=== PATIENT | female | born 1970 | race Caucasian/White ===

== ENCOUNTER 2016-11-26 14:59 | Emergency (ER) | payer SELFPAY ==
[2016-11-26] MEDS ORDERED: SODIUM CHLORIDE 0.9% 500 ML IV STA (16:06)
[2016-11-26] MEDS ORDERED: SODIUM CHLORIDE 0.9% 1,000 ML IV STA (16:06)
[2016-11-26] MEDS ORDERED: KETOROLAC 30 MG/ML 1 ML VIAL IVP STA (16:07)
[2016-11-26] MEDS ORDERED: IPRATROPIUM-ALBUTEROL 3 ML NEB INHALATION STA (16:07)
--- NOTE | 2016-11-26 16:14 | ED ---
Dizziness HPI - General Chief Complaint: Syncope Stated Complaint: lightheaded/dizziness/PATTY Time Seen by Provider: 11/26/16 15:58 Source: patient, RN notes reviewed Mode of arrival: wheelchair Limitations: no limitations - History of Present Illness Initial Comments: Patient is a 46-year-old female with chief complaint of shortness of breath and cough for the past week. She was diagnosed with bronchitis one week ago, and she is placed on azithromycin and Medrol Dosepak. Patient reports that she was continuing to feel ill so she went to [facility] last night. Patient reports that they did a flu swab which was negative and give her IV fluids. Patient reports they did not check any blood work. She states that today when she tried to walk the mailbox she had to stop for times to catch her breath. She states that she is a smoker but has decreased on her smoking due to her significant shortness of breath over the past week. She denies any other symptoms including abdominal pain, nausea or vomiting. She has taken her albuterol inhaler more frequently. Patient presents that she feels that she has had significant sinus congestion as well as a sore throat. Patient has a past medical history of fibromyalgia. - Related Data Home Medications Medication Instructions Recorded Confirmed Albuterol Inhaler [Ventolin Hfa 2 puff INHALATION RT-QID PRN 11/26/16 11/26/16 Inhaler] Previous Rx's Medication Instructions Recorded Levofloxacin [Levaquin] 750 mg PO DAILY #7 tab 11/26/16 predniSONE 50 mg PO DAILY #5 tab 11/26/16 Allergies Allergy/AdvReac Type Severity Reaction Status Date / Time No Known Allergies Allergy Verified 11/26/16 16:53 Review of Systems ROS Statement: Those systems with pertinent positive or pertinent negative responses have been documented in the HPI. ROS Other: All systems not noted in ROS Statement are negative. Past Medical History Additional Past Medical History / Comment(s): fibromyglia History of Any Multi-Drug Resistant Organisms: None Reported Past Psychological History: Depression Smoking Status: Current every day smoker Past Alcohol Use History: None Reported Past Drug Use History: None Reported General Exam - General Exam Comments Initial Comments: Patient is a ill-appearing 46-year-old female. . Limitations: no limitations General appearance: alert, in no apparent distress Head exam: Present: atraumatic, normocephalic, normal inspection Eye exam: Present: normal appearance, PERRL, EOMI. Absent: scleral icterus, conjunctival injection, periorbital swelling ENT exam: Present: normal exam, normal oropharynx, mucous membranes moist Neck exam: Present: normal inspection. Absent: tenderness, meningismus, lymphadenopathy Respiratory exam: Present: normal lung sounds bilaterally, wheezes (bilateral wheezing and rhonchi). Absent: respiratory distress, rales, rhonchi, stridor Cardiovascular Exam: Present: regular rate, normal rhythm, normal heart sounds. Absent: systolic murmur, diastolic murmur, rubs, gallop, clicks GI/Abdominal exam: Present: soft, normal bowel sounds. Absent: distended, tenderness, guarding, rebound, rigid Extremities exam: Present: normal inspection, full ROM, normal capillary refill. Absent: tenderness, pedal edema, joint swelling, calf tenderness Back exam: Present: normal inspection Neurological exam: Present: alert, oriented X3, CN II-XII intact Psychiatric exam: Present: normal affect, normal mood Skin exam: Present: warm, dry, intact, normal color. Absent: rash Course Vital Signs 11/26/16 11/26/16 11/26/16 15:05 16:27 16:39 Temperature 96.8 F L Pulse Rate 62 64 74 Respiratory 17 Rate Blood Pressure 176/97 O2 Sat by Pulse 100 Oximetry 11/26/16 11/26/16 16:41 18:24 Temperature 97.1 F L 97.3 F L Pulse Rate 82 63 Respiratory 22 18 Rate Blood Pressure 166/98 163/89 O2 Sat by Pulse 100 99 Oximetry EKG Findings - EKG Comments: EKG Findings:: EKG shows normal sinus rhythm with possible sinus arrhythmia. Intergrade 71 bpm. MT interval 190 ms. QS duration 82 Elza's hands. QT/QTC 38/ 421 ms. No evidence of ST elevation or T-wave inversion. Medical Decision Making - Medical Decision Making Patient is a 46-year-old female with chief complaint of shortness of breath and cough for the past week. She was diagnosed with bronchitis one week ago, and she is placed on azithromycin and Medrol Dosepak. Patient labs reviewed, no acute process noted besides urinary tractinfection. Patient CXR shows signs of bronchitis. Patient will be given rx for levaquin, initial dose in the [facility]. Patient given instructions on return parameters and following up with PCP. Agrees with treatment plan and will comply. - Lab Data Result diagrams: 11/26/16 16:39 11/26/16 16:39 Lab Results 11/26/16 11/26/16 11/26/16 Range/Units 16:39 16:39 16:39 WBC 10.5 (3.8-10.6) k/uL RBC 4.93 (3.80-5.40) m/uL Hgb 15.7 (11.4-16.0) gm/dL Hct 47.6 H (34.0-46.0) % MCV 96.6 (80.0-100.0) fL MCH 31.8 (25.0-35.0) pg MCHC 32.9 (31.0-37.0) g/dL RDW 13.0 (11.5-15.5) % Plt Count 282 (150-450) k/uL Neutrophils % 42 % Lymphocytes % 48 % Monocytes % 4 % Eosinophils % 2 % Basophils % 1 % Neutrophils # 4.4 (1.3-7.7) k/uL Lymphocytes # 5.0 H (1.0-4.8) k/uL Monocytes # 0.5 (0-1.0) k/uL Eosinophils # 0.2 (0-0.7) k/uL Basophils # 0.1 (0-0.2) k/uL Manual Slide Review Performed Toxic Granulation Present PT 11.3 (9.0-12.0) sec INR 1.1 (<1.1) APTT 24.8 (22.0-30.0) sec Sodium 142 (137-145) mmol/L Potassium 3.7 (3.5-5.1) mmol/L Chloride 105 (98-107) mmol/L Carbon Dioxide 26 (22-30) mmol/L Anion Gap 11 mmol/L BUN 13 (7-17) mg/dL Creatinine 0.72 (0.52-1.04) mg/dL Est GFR (MDRD) Af Amer >60 (>60 ml/min/1.73 sqM) Est GFR (MDRD) Non-Af >60 (>60 ml/min/1.73 sqM) Glucose 87 (74-99) mg/dL Calcium 9.3 (8.4-10.2) mg/dL Magnesium 1.8 (1.6-2.3) mg/dL Total Bilirubin 0.6 (0.2-1.3) mg/dL AST 15 (14-36) U/L ALT 45 (9-52) U/L Alkaline Phosphatase 83 (38-126) U/L Troponin I (0.000-0.034) ng/mL Total Protein 7.0 (6.3-8.2) g/dL Albumin 4.1 (3.5-5.0) g/dL Urine Color Urine Appearance (Clear) Urine pH (5.0-8.0) Ur Specific [place] (1.001-1.035) Urine Protein (Negative) Urine Glucose (UA) (Negative) Urine Ketones (Negative) Urine Blood (Negative) Urine Nitrate (Negative) Urine Bilirubin (Negative) Urine Urobilinogen (<2.0) mg/dL Ur Leukocyte Esterase (Negative) Urine RBC (0-5) /hpf Urine WBC (0-5) /hpf Ur Squamous Epith Cells (0-4) /hpf Urine Bacteria (None) /hpf Urine Mucus (None) /hpf Influenza Type A RNA (Not Detectd) Influenza Type B (PCR) (Not Detectd) 11/26/16 11/26/16 11/26/16 Range/Units 16:39 16:39 16:39 WBC (3.8-10.6) k/uL RBC (3.80-5.40) m/uL Hgb (11.4-16.0) gm/dL Hct (34.0-46.0) % MCV (80.0-100.0) fL MCH (25.0-35.0) pg MCHC (31.0-37.0) g/dL RDW (11.5-15.5) % Plt Count (150-450) k/uL Neutrophils % % Lymphocytes % % Monocytes % % Eosinophils % % Basophils % % Neutrophils # (1.3-7.7) k/uL Lymphocytes # (1.0-4.8) k/uL Monocytes # (0-1.0) k/uL Eosinophils # (0-0.7) k/uL Basophils # (0-0.2) k/uL Manual Slide Review Toxic Granulation PT (9.0-12.0) sec INR (<1.1) APTT (22.0-30.0) sec Sodium (137-145) mmol/L Potassium (3.5-5.1) mmol/L Chloride (98-107) mmol/L Carbon Dioxide (22-30) mmol/L Anion Gap mmol/L BUN (7-17) mg/dL Creatinine (0.52-1.04) mg/dL Est GFR (MDRD) Af Amer (>60 ml/min/1.73 sqM) Est GFR (MDRD) Non-Af (>60 ml/min/1.73 sqM) Glucose (74-99) mg/dL Calcium (8.4-10.2) mg/dL Magnesium (1.6-2.3) mg/dL Total Bilirubin (0.2-1.3) mg/dL AST (14-36) U/L ALT (9-52) U/L Alkaline Phosphatase (38-126) U/L Troponin I <0.012 (0.000-0.034) ng/mL Total Protein (6.3-8.2) g/dL Albumin (3.5-5.0) g/dL Urine Color Light Yellow Urine Appearance Cloudy H (Clear) Urine pH 6.0 (5.0-8.0) Ur Specific [place] 1.008 (1.001-1.035) Urine Protein Negative (Negative) Urine Glucose (UA) Negative (Negative) Urine Ketones Negative (Negative) Urine Blood Negative (Negative) Urine Nitrate Positive H (Negative) Urine Bilirubin Negative (Negative) Urine Urobilinogen <2.0 (<2.0) mg/dL Ur Leukocyte Esterase Moderate H (Negative) Urine RBC 2 (0-5) /hpf Urine WBC 21 H (0-5) /hpf Ur Squamous Epith Cells 2 (0-4) /hpf Urine Bacteria Moderate H (None) /hpf Urine Mucus Rare H (None) /hpf Influenza Type A RNA Not Detected (Not Detectd) Influenza Type B (PCR) Not Detected (Not Detectd) - Radiology Data Radiology results: report reviewed Chest x-rays to cry for reactive airway disease., Bronchitis and follow-up as indicated. Disposition Clinical Impression: UTI (urinary tract infection), Bronchitis Disposition: HOME SELF-CARE Condition: Good Instructions: Urinary Tract Infection in Women (ED), Acute Bronchitis (ED) Additional Instructions: Patient advised to continue to use albuterol inhaler as directed. Patient advised to start antibiotics and complete entire prescriptions of steroids. Follow-up with primary care provider symptoms continue persist. Return to the [facility] if any alarming signs or symptoms occur. Prescriptions: Levofloxacin [Levaquin] 750 mg PO DAILY #7 tab predniSONE 50 mg PO DAILY #5 tab Referrals: None,Stated [Primary Care Provider] - 1-2 days Terrell Washington MD [REFERRING] - 1-2 days Time of Disposition: 17:59
[2016-11-26 17:00] LABS: Basophils # (A) 0.1 k/uL (0-0.2); Basophils % (A) 1 %; CH 32.5; CHCM 33.8; Eosinophils # (A) 0.2 k/uL (0-0.7); Eosinophils % (A) 2 %; HCT 47.6 % (34.0-46.0); HDW 2.28; HGB 15.7 gm/dL (11.4-16.0); Luc # (Auto) 0.28; Luc % (Auto) 3; Lymphocytes % (A) 48 %; MCH 31.8 pg (25.0-35.0); MCHC 32.9 g/dL (31.0-37.0); MCV 96.6 fL (80.0-100.0); Mean Platelet Volume 7.3; Monocytes # (A) 0.5 k/uL (0-1.0); Monocytes % (A) 4 %; Neutrophils # (A) 4.4 k/uL (1.3-7.7); Neutrophils % (A) 42 %; RBC 4.93 m/uL (3.80-5.40); WBC 10.5 k/uL (3.8-10.6)
--- NOTE | 2016-11-26 17:01 | XR ---
EXAMINATION TYPE: XR chest 2V DATE OF EXAM: 11/26/2016 4:58 PM COMPARISON: NONE HISTORY: Syncope, cough TECHNIQUE: Frontal and lateral views of the chest are obtained. FINDINGS: There is no focal air space opacity, pleural effusion, or pneumothorax seen. The cardiac silhouette size is within normal limits. Patient is rotated. Prominent lung volumes may be indicativ e of underlying COPD. There is bronchial wall thickening. The osseous structures are intact. IMPRESSION: Correlate for reactive airways disease, bronchitis, follow-up as indicated.
[2016-11-26 17:06] LABS: Appearance,Urine Cloudy (Clear); Bacteria,Urine Moderate /hpf; Bilirubin,Urine Negative (Negative); Glucose,Urine (UA) Negative (Negative); INR 1.1 (<1.1); Ketones,Urine Negative (Negative); Leukocyte Esterase,Urine Moderate (Negative); Mucus,Urine Rare /hpf; Nitrite,Urine Positive (Negative); Partial Thromboplastin Time 24.8 sec (22.0-30.0); Particle Count 39657; Protein,Urine Negative (Negative); Prothrombin Time 11.3 sec (9.0-12.0); RBC,Urine 2 /hpf (0-5); Specific Gravity,Urine 1.008 (1.001-1.035); Squamous Epithelial Cell,Urine 2 /hpf (0-4); UA Billing (MACRO vs. MICRO) MICRO; Urobilinogen,Urine <2.0 mg/dL (<2.0); WBC,Urine 21 /hpf (0-5)
[2016-11-26 17:09] LABS: ALT 45 U/L (9-52); AST 15 U/L (14-36); Alkaline Phosphatase 83 U/L (38-126); Anion Gap 11 mmol/L; Blood Urea Nitrogen 13 mg/dL (7-17); Calcium 9.3 mg/dL (8.4-10.2); Carbon Dioxide 26 mmol/L (22-30); Chloride 105 mmol/L (98-107); Glucose 87 mg/dL (74-99); Magnesium 1.8 mg/dL (1.6-2.3); Non-African American GFR(MDRD) >60 (>60 ml/min/1.73 sqM); Potassium 3.7 mmol/L (3.5-5.1); Sodium 142 mmol/L (137-145); Total Bilirubin 0.6 mg/dL (0.2-1.3)
[2016-11-26 17:27] LABS: Manual Review Performed; Toxic Granulation Present
[2016-11-26] MEDS ORDERED: LEVOFLOXACIN 750 MG TAB PO STA (17:54)
[2016-11-26] MEDS ORDERED: LEVOFLOXACIN 500 MG TAB PO STA (17:54)
[2016-11-26] MEDS ORDERED: methylPREDNISolone SOD SUCCI 125 MG/2 ML VIAL IV STA (17:56)
[2016-11-26 18:25] VITALS: BP 163/89; PULSE 63; RESP 18; TEMP 97.3
== END 2016-11-26 18:38 | disposition home or self-care (01) ==
LOC: EC 14:59
DX: J40 Bronchitis, not specified as acute or chronic (principal); N39.0 Urinary tract infection, site not specified; F17.200 Nicotine dependence, unspecified, uncomplicated
CPT/HCPCS: 36415; 94640; 93005; 80053; 83735; 84484; 85025; 85610; 85730; 81001; 87502; 71020; 99284; 96374; 96375; 96361; J2930; J1885